=== PATIENT | male | born 1965 | race Two or more races ===

== ENCOUNTER 2016-11-25 08:18 | Emergency (ER) | payer BC, OTHER ==
[2016-11-25 08:27] VITALS: BP 147/90; PULSE 65; TEMP 97.7; BMI 28.7
[2016-11-25] MEDS ORDERED: IBUPROFEN 600 MG TABLET (FP) PO ONE (08:44)
--- NOTE | 2016-11-25 09:18 | PDOC ---
History of Present Illness - General Chief Complaint: Injury Stated Complaint: FALL/KNEE PAIN Time Seen by Provider: 11/25/16 08:45 History Source: Patient Exam Limitations: No Limitations - History of Present Illness Initial Comments: 11/25/16 09:13 51 yr male with right knee injury at work. Pt states he slipped on ice and fell twisting knee behind him. Pt has limited ROM with the knee. Occurred: reports: just prior to arrival Severity: Yes: moderate Lower Extremity Pain Location: right: knee Method of Injury: Yes: fell, twisted Lower Ext. Injury Location - Specific Injury Location Knees: right joint effusion, right swelling, right pain Past History - Past Medical History Allergies/Adverse Reactions: Allergies Allergy/AdvReac Type Severity Reaction Status Date / Time No Known Drug Allergies Allergy Verified 11/25/16 08:22 Home Medications: Ambulatory Orders Amlodipine Besylate 5 mg PO DAILY 07/01/16 Oxycodone HCl/Acetaminophen [Percocet 5-325 mg Tablet] 1 tab PO Q6H PRN #12 tablet MDD 4 tabs 11/25/16 Anemia: No Asthma: No Cancer: No Cardiac Disorders: No CVA: No COPD: No CHF: No Dementia: No Diabetes: No GI Disorders: Yes (GERD) Disorders: No HTN: Yes (off meds) Hypercholesterolemia: No Liver Disease: No Seizures: No Thyroid Disease: No - Surgical History Abdominal Surgery: Yes (UMBLICIAL HERNIA REPAIRED) Appendectomy: No Cardiac Surgery: No Cholecystectomy: No Lung Surgery: No Neurologic Surgery: No Orthopedic Surgery: Yes (RIGHT KNEE SURGERY) - Psycho/Social/Smoking Cessation Hx Anxiety: No Suicidal Ideation: No Smoking History: Never smoked Have you smoked in the past 12 months: No Information on smoking cessation initiated: No Hx Alcohol Use: No Drug/Substance Use Hx: No Substance Use Type: None Hx Substance Use Treatment: No Review of Systems - Review of Systems Able to Perform ROS?: Yes Is the patient limited Azeri proficient: No Constitutional: No: Symptoms Reported HEENTM: No: Symptoms Reported Respiratory: No: Symptoms reported Cardiac (ROS): No: Symptoms Reported ABD/GI: No: Symptoms Reported : No: Symptoms Reported Musculoskeletal: Yes: See HPI *Physical Exam - Vital Signs Last Vital Signs Temp Pulse Resp BP Pulse Ox 97.7 F 65 18 147/90 100 11/25/16 08:22 11/25/16 08:22 11/25/16 08:22 11/25/16 08:22 11/25/16 08:22 - Physical Exam General Appearance: Yes: Nourished, Appropriately Dressed HEENT: positive: EOMI, MERNA Respiratory/Chest: positive: Lungs Clear, Normal Breath Sounds Cardiovascular: positive: Regular Rhythm, Regular Rate Musculoskeletal: positive: Normal Inspection Extremity: positive: Normal Capillary Refill, Tender (right knee, limited ROM due to pain , nv intact ), Swelling Integumentary: positive: Normal Color, Dry, Warm Neurologic: positive: Fully Oriented, Alert, Normal Mood/Affect, Normal Response , Motor Strength 01/10 ED Treatment Course - RADIOLOGY Radiology Studies Ordered: Category Date Time Status KNEE 3 POS-RIGHT [RAD] Stat Radiology 11/25/16 08:44 Completed - Medications Given in the ED: ED Medications Discontinued Medications Generic Name Dose Route Start Last Admin Trade Name Freq PRN Reason Stop Dose Admin Ibuprofen 600 mg 11/25/16 08:44 11/25/16 09:00 Motrin - PO 11/25/16 08:45 600 mg ONCE ONE Administration - Consult/PCP Time Called: 09:30 Consult Reason/Comments: pt can be seen now in 's office. Medical Decision Making - Medical Decision Making 11/25/16 09:15 cc: right knee injury at work xray, motrin and ice pack placed pt uses 11/25/16 09:17 xray results dicussed with pt knee immobilizer placed pts will be picking him up and he will follow up with 11/25/16 09:30 spoke with 's office they can see him now in the office. Pt aware and will go to his office. *DC/Admit/Observation/Transfer Diagnosis at time of Disposition: Right knee sprain Qualifiers: Encounter type: initial encounter Involved ligament of knee: other ligament Qualified Code(s): S83.8X1A - Sprain of other specified parts of right knee, initial encounter - Prescriptions Prescriptions: Oxycodone HCl/Acetaminophen [Percocet 5-325 mg Tablet] 1 tab PO Q6H PRN #12 tablet MDD 4 tabs PRN Reason: Severe Pain - Referrals Referrals: Aamir Najera MD [Staff Physician] - - Patient Instructions Additional Instructions: follow with call today to make appointment this week keep the immobilizer on at all times remove to bathe use crutches to ambulate take percocet for severe pain take motrin for mild to moderate pain - Post Discharge Activity Work/School Note: Back to Work
== END 2016-11-25 09:31 | disposition home or self-care (01) ==
LOC: JERFT 08:18
PROC: 2W3LX1Z Immobilization of Right Lower Extremity using Splint (ICD-10-PCS; principal; 2016-11-25)
DX: S83.8X1A Sprain of other specified parts of right knee, initial encounter (principal); W00.2XXA Other fall from one level to another due to ice and snow, initial encounter; Y93.89 Activity, other specified; Y92.89 Other specified places as the place of occurrence of the external cause; Y99.0 Civilian activity done for income or pay
CPT/HCPCS: 73562-TC-RT; 99282-25

== ENCOUNTER 2016-11-27 10:46 | Day surgery (SDC) | payer BC, OTHER ==
[2016-11-26 12:31] VITALS: BMI 31.8
[~2016-11-27 10:46] MED LIST: BUPIVACAINE HCL/PF 0.5% (5MG/ML) 10 ML VIAL IJ ONE
--- NOTE | 2016-11-27 13:17 | HP ---
[facility] - Chief Complaint Chief Complaint: right knee pain, decreased ROM and strength History of Present Illness: right knee Quad tendon tear History Source: Patient Limitations to Obtaining History: No Limitations - Past Medical History Allergies/Adverse Reactions: Allergies Allergy/AdvReac Type Severity Reaction Status Date / Time No Known Drug Allergies Allergy Verified 11/27/16 11:16 - Current Medications Current Medications: Home Medications Medication Instructions Recorded Amlodipine Besylate 5 mg PO DAILY 07/01/16 Oxycodone HCl/Acetaminophen 1 tab PO Q6H PRN #12 tablet MDD 4 11/25/16 [Percocet 5-325 mg Tablet] tabs Hydrochlorothiazide [Hctz -] 12.5 mg PO DAILY 11/27/16 Satellite Physical Exam - Physical Examination Vital Signs: Vital Signs Period Temp Pulse Resp BP Sys/Rangel Pulse Ox Last 24 Hr 97.5 F 70 18 133/79 99 General Appearance: Well Nourished ENT: Clear Lung: Clear to auscultation Heart: Regular rate & rhythm Breasts: Soft Abdomen: Soft Extremities: No edema [facility]ellite Impression/Plan - Impression/Plan Impression: right knee Quadriceps tendon rupture Operative Procedure: right knee Quadriceps tendon repair Date to be Performed: 11/27/16
[2016-11-27] MEDS ORDERED: DEXAMETHASONE SOD PHOSPHATE 4 MG/1 ML VIAL ONE (13:27)
[2016-11-27] MEDS ORDERED: SODIUM CHLORIDE 0.9% P/F 10 ML VIAL IJ ONE (13:27)
[2016-11-27] MEDS ORDERED: ceFAZolin SODIUM 1 GM VIAL ONE (13:27)
[2016-11-27] MEDS ORDERED: KETOROLAC TROMETHAMINE 30 MG/1 ML VIAL ONE (13:27)
[2016-11-27] MEDS ORDERED: MIDAZOLAM HCL 2 MG/2 ML SINGLE DOSE VIAL ONE (13:28)
[2016-11-27] MEDS ORDERED: ONDANSETRON 4 MG/2 ML VIAL IVPUSH PRN (13:47)
[2016-11-27] MEDS ORDERED: oxyCODONE HCL 5 MG TABLET PO PRN (13:47)
[2016-11-27] MEDS ORDERED: BUPIVACAINE HCL/PF 0.5% (5MG/ML) 10 ML VIAL ONE (13:59)
[2016-11-27] MEDS ORDERED: LACTATED RINGERS SOLUTION 1,000 ML IV SCH (14:00)
[2016-11-27] MEDS ORDERED: ceFAZolin SODIUM 1 GM VIAL IVPB ONE (14:03)
[2016-11-27] MEDS ORDERED: BUPIVACAINE HCL/PF 0.5% (5MG/ML) 10 ML VIAL IJ ONE (15:15)
--- NOTE | 2016-11-27 15:28 | OP ---
Operative Note - Note: Operative Date: 11/27/16 Pre-Operative Diagnosis: right quadriceps tendon rupture Operation: right quadriceps tendon repair Post-Operative Diagnosis: Same as Pre-op Surgeon: Curtis Kidd Anesthesiologist/CREDIT [employer] FIELD EXAMINER: Asher Barraza Jr. Anesthesia: General, Local Estimated Blood Loss (mls): 0 Blood Volume Replaced (mls): 0 Fluid Volume Replaced (mls): 1,000 Operative Report Dictated: Yes
[2016-11-27 17:18] VITALS: TEMP 98.6
[2016-11-27 18:40] VITALS: BP 146/85; PULSE 98
--- NOTE | 2016-11-28 12:42 | OP ---
DATE OF OPERATION: 11/27/2016 PREOPERATIVE DIAGNOSIS: Right distal quadriceps tendon rupture. POSTOPERATIVE DIAGNOSIS: Right distal quadriceps tendon rupture. PROCEDURE: Right distal quadriceps tendon repair and retinacular repair. SURGEON: Curtis Kidd MD BARREL INSPECTOR: None. ANESTHESIA: Asher Barraza CRNA. LMA anesthesia, local injection of 20 mL 0.5% Marcaine. DRAINS: None. COMPLICATIONS: None. SPECIMENS: None. FLUID REPLACEMENT: 1000 mL. BLOOD LOSS: None. BLOOD GIVEN: None. INDICATIONS: This patient is a 51-year-old male with a preoperative diagnosis of an acute posttraumatic rupture of the right distal quadriceps tendon after slipping on ice. We discussed the potential risks, complications, alternatives, and benefits to surgery versus nonsurgical treatment, and the patient elected to undergo this procedure. DESCRIPTION OF PROCEDURE: The patient was brought to the operating room. Peripheral IV place. IV sedation given. Then 2 g of IV Ancef was given. LMA anesthesia was induced. The right lower extremity was prepped and draped in the usual sterile fashion. A tourniquet was applied to the right upper thigh, elevated and exsanguinated with an Esmarch bandage. Tourniquet was inflated to 275 mmHg. A straight midline incision was made with a No. 15 scalpel blade. Subcutaneous hemostasis was achieved with a Bovie cautery. Dissection was done through the superficial fascia and to the patella and the distal patella tendon. A hematoma was evacuated. I was able to directly visualize the tear. The entire distal quadriceps tendon had avulsed off the superior portion of the patella. He also tore the medial and lateral patella retinaculum. Some acute inflammatory tissue was removed as well as hematoma was evacuated. Once we cleaned up the distal ends, used a rongeur to remove the inflammatory tissue from the top portion of the patella and did a small fish mouth trough for insertion of the quadriceps tendon. The patient was big and had a big quadriceps tendon; therefore, 3 FiberWires were used in a locking whipstitch fashion up and down the medial, lateral, and central portion of the distal quadriceps tendon. There was excellent fixation. I then used a Beath pin from proximal to distal and fed through the FiberWire then thread the FiberWire through 3 holes through the patella. I put a bump under the ankle to take the pressure off. I was able to pull the quadriceps tendon down to the top portion of the patella quite well. It went into the trough. It looked good. I tied it over the distal aspect of the patella. I then tied the suture tails to themselves as an "insurance" stitch. Next, I repaired the medial and lateral retinaculum with a [id number] interrupted No. 1 TiCron sutures. The area was irrigated and washed out. I closed the deep fascial layer with 0 Vicryl, the deep dermal layer with 2-0 Vicryl, and final skin reapproximation was done with swathi. The area was then washed and dried and covered with Xeroform gauze, 4x4s, Webril, and 6-inch Rosendo bandages. The patient was put into a knee immobilizer with the ice packs. Tourniquet was taken down after a total tourniquet time of 68 minutes. There were no complications during the case. The patient tolerated the procedure well and was brought to the ambulatory recovery room in stable condition. Bill [id number]
== END 2016-11-27 18:40 | disposition home or self-care (01) ==
LOC: JASU-SURG 10:46
PROVIDERS: ATTEND Orthopaedic Surgery
PROC: 0LQQ0ZZ Repair Right Knee Tendon, Open Approach (ICD-10-PCS; 2016-11-27)
PROC: 0LQL0ZZ Repair Right Upper Leg Tendon, Open Approach (ICD-10-PCS; principal; 2016-11-27 12:15)
DX: S76.111A Strain of right quadriceps muscle, fascia and tendon, initial encounter (principal); S86.811A Strain of other muscle(s) and tendon(s) at lower leg level, right leg, initial encounter; X58.XXXA Exposure to other specified factors, initial encounter; Y93.9 Activity, unspecified; Y92.9 Unspecified place or not applicable
CPT/HCPCS: 94760